=== PATIENT | female | born 1985 | race American Indian/Alaskan Native ===

== ENCOUNTER 2019-02-16 08:41 | Emergency (ER) | payer BC ==
[2019-02-16 08:54] VITALS: BP 108/62; PULSE 76; RESP 16; TEMP 98.4; O2SAT 100
[2019-02-16 08:55] VITALS: BMI 28.3
--- NOTE | 2019-02-16 10:29 | ED PDOC ---
HPI: Abdomen Time Seen by Provider: 02/16/19 09:09 Chief Complaint (Nursing): Abdominal Pain History Per: Patient History/Exam Limitations: no limitations Onset/Duration Of Symptoms: Days (4) Outside of [place] travel?: No Current Symptoms Are (Timing): Gone Now Severity: None Pain Scale Rating Of: 0 Associated Symptoms: denies: Fever, Vomiting, Urinary Symptoms Exacerbating Factors: None Alleviating Factors: None Additional History Per: Patient Additional Complaint(s): patient presents with vagian bleeding 3 days ago that resolved. No abdominal pain. She is 7 week . She is A2. Previous US non conclusive. Abnormal Vaginal Bleeding: Yes Past Medical History Reviewed: Historical Data, Nursing Documentation, Vital Signs Vital Signs: Last Vital Signs Temp 98.4 F 02/16/19 08:54 Pulse 76 02/16/19 08:54 Resp 16 02/16/19 08:54 BP 108/62 02/16/19 08:54 Pulse Ox 100 02/16/19 08:54 - Medical History PMH: No Chronic Diseases - Surgical History Surgical History: No Surg Hx - Family History Family History: States: No Known Family Hx - Allergies Allergies/Adverse Reactions: Allergies Allergy/AdvReac Type Severity Reaction Status Date / Time No Known Allergies Allergy Verified 02/16/19 09:04 Review of Systems ROS Statement: Except As Marked, All Systems Reviewed And Found Negative Physical Exam - Reviewed Nursing Documentation Reviewed: Yes Vital Signs Reviewed: Yes - Physical Exam Appears: Positive for: Non-toxic, No Acute Distress Head Exam: Positive for: ATRAUMATIC, NORMAL INSPECTION Skin: Positive for: Normal Color Eye Exam: Positive for: EOMI Cardiovascular/Chest: Positive for: Regular Rate, Rhythm Respiratory: Positive for: Normal Breath Sounds Gastrointestinal/Abdominal: Positive for: Soft. Negative for: Tenderness Back: Positive for: Normal Inspection Extremity: Positive for: Normal ROM Neurological/Psych: Positive for: Awake, Alert, Oriented - ECG O2 Sat by Pulse Oximetry: 100 Medical Decision Making Medical Decision Making: Impression Vaginal bleeding in Diff includes spontaneous miscarriage Plan Betaquant TV US Blood type AB positive 1215 FINDINGS: UTERUS: Gestational sac: A single viable intrauterine gestation is identified with CRL ultrasonic age of 6 weeks 6 days, concordant with LMP derived dates. Gestational sac within the uterus demonstrates yolk sac and pole with no definite pattern suspicious for decidual related hemorrhage. The decidual reaction appears unremarkable as imaged. Mean gestational sac size 2.8 cm. Heart rate: 127 bpm. age (Ultrasound estimated): 6 weeks 6 days Lara-gestational hemorrhage: None. Date of delivery (Ultrasound estimated) : 09/30/2019. Uterus measures 8.4 x 5.8 x 5.2 cm. No definite mass is identified throughout the myometrial echotexture. CERVIX: Measures 4.3 cm. Long and closed. No cervical abnormality seen. RIGHT OVARY: Measures 4.3 x 3.2 x 3.6 cm. No mass lesion. Normal flow. Likely corpus luteum cyst measuring 3.1 x 2.3 x 2.2 cm LEFT OVARY: Measures 1.9 x 1.0 x 1.5 cm. No solid mass. Normal flow. FREE FLUID: None. OTHER FINDINGS: None. IMPRESSION: Single viable intrauterine gestation at mid 1st trimester with age of 6 weeks 6 days by crown-rump length mean. 127 beats per minute heart rate. No definite decidual reaction hemorrhage appreciable. Right corpus luteum cyst 3.1 cm. Disposition - Clinical Impression Clinical Impression: Vaginal bleeding before 22 weeks gestation - Patient ED Disposition Is Patient to be Admitted: No Doctor Will See Patient In The: Office Counseled Patient/Family Regarding: Studies Performed, Diagnosis, Need For Followup - Disposition [facility] Disposition: Routine/Home Disposition Time: 12:45 Condition: GOOD Additional Instructions: [employer], thank you for letting us take care of you today. Your provider was Glenn Arriaga MD and you were treated for 7 WEEKS PREG; SPOTTING AND CRAMPING. The emergency medical care you received today was directed at your acute symptoms. If you were prescribed any medication, please fill it and take as directed. It may take several days for your symptoms to resolve. Return to the Emergency Department if your symptoms worsen, do not improve, or if you have any other problems. Please contact your doctor or call one of the physicians/clinics you have been referred to that are listed on the Patient Visit Information form that is included in your discharge packet. Bring any paperwork you were given at discharge with you along with any medications you are taking to your follow up visit. Our treatment cannot replace ongoing medical care by a primary care provider outside of the emergency department. Thank you for allowing the [facility] team to be part of your care today. If you had an X-Ray or CT scan: A Radiologist will review the ED reading if any change in treatment is needed we will contact you. Instructions: Threatened Miscarriage
--- NOTE | 2019-02-16 12:16 | US ---
Date of service: 02/16/2019 PROCEDURE: OB Pelvic Ultrasound HISTORY: vaginal bleeding LMP: 12/26/2018 suggesting 7 week 3 day gestation. COMPARISON: None available. FINDINGS: UTERUS: Gestational sac: A single viable intrauterine gestation is identified with CRL ultrasonic age of 6 weeks 6 days, concordant with LMP derived dates. Gestational sac within the uterus demonstrates yolk sac and pole with no definite pattern suspicious for decidual related hemorrhage. The decidual reaction appears unremarkable as imaged. Mean gestational sac size 2.8 cm. Heart rate: 127 bpm. age (Ultrasound estimated): 6 weeks 6 days Lara-gestational hemorrhage: None. Date of delivery (Ultrasound estimated) : 09/30/2019. Uterus measures 8.4 x 5.8 x 5.2 cm. No definite mass is identified throughout the myometrial echotexture. CERVIX: Measures 4.3 cm. Long and closed. No cervical abnormality seen. RIGHT OVARY: Measures 4.3 x 3.2 x 3.6 cm. No mass lesion. Normal flow. Likely corpus luteum cyst measuring 3.1 x 2.3 x 2.2 cm LEFT OVARY: Measures 1.9 x 1.0 x 1.5 cm. No solid mass. Normal flow. FREE FLUID: None. OTHER FINDINGS: None. IMPRESSION: Single viable intrauterine gestation at mid 1st trimester with age of 6 weeks 6 days by crown-rump length mean. 127 beats per minute heart rate. No definite decidual reaction hemorrhage appreciable. Right corpus luteum cyst 3.1 cm.
== END 2019-02-16 13:10 | disposition home or self-care (01) ==
LOC: H.ER 08:41
DX: O46.92 Antepartum hemorrhage, unspecified, second trimester (principal); Z3A.01 Less than 8 weeks gestation of pregnancy